=== PATIENT | female | born 1980 | race Caucasian/White ===

== ENCOUNTER 2017-08-17 19:19 | Emergency (ER) | payer OTHER ==
[~2017-08-17] VITALS: Ht 162.6 cm; Wt 66.2 kg
[2017-08-17] MEDS ORDERED: CLINDAMYCIN PHOS 600 MG/ 4 ML VIAL IM ONE (20:00)
== END 2017-08-17 20:25 | disposition home or self-care (01) ==
LOC: FSED 19:19
DX: L03.116 Cellulitis of left lower limb (principal); H60.92 Unspecified otitis externa, left ear; J02.0 Streptococcal pharyngitis; J45.909 Unspecified asthma, uncomplicated
CPT/HCPCS: 99282

== ENCOUNTER 2018-02-01 16:56 | Emergency (ER) | payer OTHER ==
[~2018-02-01] VITALS: Ht 162.6 cm; Wt 66.2 kg
== END 2018-02-01 18:17 | disposition home or self-care (01) ==
LOC: FSED 16:56
DX: S60.211A Contusion of right wrist, initial encounter (principal); S50.11XA Contusion of right forearm, initial encounter; V43.52XA Car driver injured in collision with other type car in traffic accident, initial encounter; Y92.488 Other paved roadways as the place of occurrence of the external cause; F17.210 Nicotine dependence, cigarettes, uncomplicated
CPT/HCPCS: 99283